=== PATIENT | female | born 1980 | race Hispanic/Latino ===

== ENCOUNTER 2020-10-11 03:00 | Emergency (ER) | payer OTHER ==
[~2020-10-11] VITALS: Ht 170.2 cm; Wt 68.0 kg
--- NOTE | 2020-10-12 17:21 | EKG ---
[facility] [address] [place], [place] [address] Signed Sinus tachycardia Nonspecific ST abnormality Abnormal ECG No previous ECGs available Confirmed by LISS ARRIOLA DO ([id number]) on 10/12/2020 5:21:11 PM Electronically Signed By: LISS ARRIOLA DO 10/12/20 1721 PATIENT NAME: SEAN MOHAN MARIA Electrocardiogram DATE OF : 76 PHYSICIAN: LISS ARRIOLA DO REPORT #: [id number] REPORT IS CONFIDENTIAL AND NOT TO BE RELEASED WITHOUT AUTHORIZATION
== END 2020-10-11 05:44 | disposition home or self-care (01) ==
LOC: ED 03:00
DX: F41.9 Anxiety disorder, unspecified (principal); T40.7X5A Adverse effect of cannabis (derivatives), initial encounter
CPT/HCPCS: 93005; 93010; 96372; 99283-25; J1200